=== PATIENT | female | born 1985 | race Caucasian/White ===

== ENCOUNTER 2018-11-26 09:49 | Emergency (ER) | payer OTHER ==
[2018-11-26 10:04] VITALS: BP 129/63
[2018-11-26] MEDS: IBUPROFEN 400 MG TABLET PO ONE (10:08)
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
== END 2018-11-26 11:06 | disposition home or self-care (01) ==
LOC: ED 09:49
DX: S13.4XXA Sprain of ligaments of cervical spine, initial encounter (principal); R51 Headache; V89.2XXA Person injured in unspecified motor-vehicle accident, traffic, initial encounter
CPT/HCPCS: 72040; 99282; 99283